=== PATIENT | female | born 1995 | race Caucasian/White ===

== ENCOUNTER 2016-06-02 16:40 | Emergency (ER) | payer OTHER ==
--- NOTE | 2016-06-02 18:40 | ED ORDER SUMMARY ---
..... Patient: MELY VILLANUEVA D OrderSheet [facility] VisitID: [id number] [place] [address] 20y, F Registration Date/Time: 06/02/2016 ORDER SHEET Weight: 74.8 kg (stated) Allergies: Sulfa Antibiotics GENERAL ORDERS: EKG - ER Stat (16:54 06/02/2016 MWinterer R.N. per protocol) (16:57 MWinterer R.N.) Cardiac Panel Stat (16:58 06/02/2016 MWinterer R.N. per protocol) (Ack 17:11 LNations ER Tech1) (17:39 MWinterer R.N.) UA-Culture if indicated Urgent (17:05 06/02/2016 EKoroleva P.A.-C) (Ack 17:11 LNations ER Tech1) (17:37 KHoerner) POC - Urine hCG (17:05 06/02/2016 EKoroleva P.A.-C) (Ack 17:11 LNations ER Tech1) (17:37 KHoerner) (Cancelled: Wrong Order17:39 KHoerner) Urine Urgent (17:39 06/02/2016 KHoerner per protocol) (17:39 MWinterer R.N.) Chest 2V Urgent (18:11 06/02/2016 EKoroleva P.A.-C) (Ack 18:24 LNations ER Tech1) (18:27 MWinterer R.N.) MEDICATION ORDERS: IV FLUIDS: IV Saline Lock (17:06 06/02/2016 EKoroleva P.A.-C) (17:08 JBoardley R.N.) ORDER SHEET NOTES: [Electronically signed by Vilma Muro R.N. (19:06 06/02/2016)] [Electronically signed by Selena Weaver P.A.-C (19:24 06/02/2016)] [Electronically locked/signed by Vilma Muro R.N. (19:06 06/02/2016)]
--- NOTE | 2016-06-02 18:40 | ED NURSING NOTES ---
Clinical Report - Nurses Located Within [facility] [address] [place] [address] 06/02/2016 16:41 Patient: MELY VILLANUEVA TRIAGE Acuity: LEVEL 3. Chief Complaint: CHEST PAIN. Alert. No acute distress. SEPSIS SCREEN: Sepsis Screen. Negative (no infection suspected/documented). --16:51 Vilma Muro R.N. 16:45 06/02/16. BP: 110/53. HR: 75. RR: 16. O2 saturation: 100% on room air. Temp: 97.7 F (oral). Pain level now: 4/10. --16:51 Vilma Muro R.N. Weight: 74.8 kg stated. Height/Length: 60 inches Per Patient. BMI: 32.2. --16:50 Vilma Muro R.N. Medications Sertraline HCl Oral 100 mg, 2x a day. --16:47 Vilma Muro R.N. Albuterol Sulfate Inhalation 2 puffs, PRN. --16:47 Vilma Muro R.N. Vitamins Oral. --16:48 Vilma Muro R.N. Medication/allergy information source: the patient. --16:51 Vilma Muro R.N. Allergies Sulfa Antibiotics. --16:48 Vilma Muro R.N. History Arrived by private vehicle. Historian: patient. Accompanied by spouse. Primary physician (Smita). This started last night. Describes the quality as pressure, aching. Relates location as in the central chest area and left chest area. Notes pain level as 4/10 on arrival. Provoking / relieving factors: worsened by supine position; relieved by upright position. The patient has had difficulty breathing and nausea. 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 PAST MEDICAL HX: Last normal menstrual period was 1 week ago. Sexual history - sexually active and engages in unprotected sex. SOCIAL HX: Current every day light tobacco smoker (cigarette)- less than 1/2 a pack per day. 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 No alcohol use. FALL RISK ASSESSMENT: Fall risk assessment completed. No fall risk identified. NUTRITIONAL RISK ASSESSMENT: The nutritional risk assessment revealed no deficiencies. FUNCTIONAL ASSESSMENT: Functional assessment: no impairments noted. LEARNING NEEDS ASSESSMENT: The learning needs assessment revealed no barriers. SKIN INTEGRITY ASSESSMENT: Skin integrity risk assessment completed. No skin integrity risk identified. --16:51 Vilma Muro R.N. PROBLEMS: Constipation. Otitis Externa. Nephrolithiasis. Renal Colic. . OB History. Lifestyle / Substance Problems. Asthma. Lung Disease. --16:48 Vilma Muro R.N. Assessment GENERAL / NEURO / PSYCH: Alert. Oriented X 4. Appears in no acute distress. Patient appears calm and cooperative. RESPIRATORY: Respirations not labored. CVS: Capillary refill less than 2 seconds. GI / : Abdomen soft and nontender. SKIN: Mucous membranes are pink. Skin is warm and dry. --16:51 Vilma Muro R.N. Interventions ID band on patient. To treatment room. Ambulatory. --16:51 Vilma Muro R.N. PHYSICAL ASSESSMENT 16:52 06/02/16. Ambulatory to room. Patient gowned. GENERAL / NEURO / PSYCH: Alert. Oriented X 4. Appears in no acute distress. HEENT: Mucous membranes are pink. RESPIRATORY: Respirations not labored. CVS: Cardiac rhythm: normal sinus rhythm. Capillary refill less than 2 seconds. GI / : Abdomen nontender. EXTREMITIES: No lower extremity edema. SKIN: Skin is warm and dry. Normal skin turgor. Skin is non-tender. --16:52 Vilma Muro R.N. NURSING PROGRESS NOTES 16:53 06/02/16. property assessment monitor and pulse oximeter placed on patient; personnel monitor- Lead I; monitor alarms on. Patient gowned. Head of bed elevated. Two patient identifiers checked. Call light placed in reach. Side rails up x 1. Bed placed in lowest position. Brakes of bed on. Patient ready for evaluation- chart flagged. --16:53 Vilma Muro R.N. 16:55 06/02/2016 Site #1 started via IV in the left wrist with an 20g angiocath, with aseptic technique and good blood return; one attempt. Blood drawn: rainbow set. Labeled in the presence of the patient and sent to the lab. Saline lock flushed with 10 mL saline. --16:55 Vilma Mruo R.N. EKG time: (165). EKG was ordered, performed by a tech and shown to the ED physician. --16:57 Vilma Muro R.N. <<STRICKEN ENTRY-- 16:58 06/02/2016 Site #2 started via IV in the left wrist with an 20g angiocath, with aseptic technique and good blood return; one attempt. Saline lock flushed with 10 mL saline (only able to draw green top blood specimen). --17:08 Obi Flores R.N. --END STRIKE>> Other. entered in error, already documented --17:10 Obi Flores R.N. 18:12 06/02/16. The patient reports no complaints and she is calm and resting quietly. Overall patient status- she states feels better (pt baby). --18:12 Vilma Muro R.N. 18:27 06/02/16. BP: 110/63. HR: 66. RR: 12. O2 saturation: 99% on room air. Temp: 97.7 F (oral). --18:28 Vilma Muro R.N. 18:45 06/02/2016 Site #1 removed upon discharge. Catheter intact. Manual pressure and bandage applied. --19:06 Vilma Muro R.N. DISPOSITION / DISCHARGE Departure time: 18:45 Jun 02 2016. Condition at departure: improved and stable. No learning barriers present. Discharge instructions provided and reviewed with the patient. Reviewed medication(s) side effects, precautions and dosing information. Prescription(s) given to the patient. Patient verbalized understanding. Written instructions provided in Vietnamese. The patient was discharged by the physician executive staff assistant. She was discharged home and accompanied by spouse. She left the Emergency Department ambulatory and via private vehicle. Spouse driving. --19:06 Vilma Muro R.N. 19:02 06/02/16. BP: 110/63. HR: 66. RR: 12. O2 saturation: 99%. Temp: 97.7 F. --19:06 Vilma Muro R.N. Locked/Released at 06/02/2016 19:06 by Vilma Muro R.N.
--- NOTE | 2016-06-02 18:40 | ED ORDER SUMMARY ---
..... Patient: MELY VILLANUEVA D OrderSheet [facility] VisitID: [id number] [place] [address] 20y, F Registration Date/Time: 06/02/2016 ORDER SHEET Weight: 74.8 kg (stated) Allergies: Sulfa Antibiotics GENERAL ORDERS: EKG - ER Stat (16:54 06/02/2016 MWinterer R.N. per protocol) (16:57 MWinterer R.N.) Cardiac Panel Stat (16:58 06/02/2016 MWinterer R.N. per protocol) (Ack 17:11 LNations ER Tech1) (17:39 MWinterer R.N.) UA-Culture if indicated Urgent (17:05 06/02/2016 EKoroleva P.A.-C) (Ack 17:11 LNations ER Tech1) (17:37 KHoerner) POC - Urine hCG (17:05 06/02/2016 EKoroleva P.A.-C) (Ack 17:11 LNations ER Tech1) (17:37 KHoerner) (Cancelled: Wrong Order17:39 KHoerner) Urine Urgent (17:39 06/02/2016 KHoerner per protocol) (17:39 MWinterer R.N.) Chest 2V Urgent (18:11 06/02/2016 EKoroleva P.A.-C) (Ack 18:24 LNations ER Tech1) (18:27 MWinterer R.N.) MEDICATION ORDERS: IV FLUIDS: IV Saline Lock (17:06 06/02/2016 EKoroleva P.A.-C) (17:08 JBoardley R.N.) ORDER SHEET NOTES: [Electronically signed by Vilma Muro R.N. (19:06 06/02/2016)] [Electronically signed by Selena Weaver P.A.-C (19:24 06/02/2016)] [Electronically locked/signed by Vilma Muro R.N. (19:06 06/02/2016)]
--- NOTE | 2016-06-02 18:40 | ED CLINICAL REPORT ---
Clinical Report - Physicians/Mid Levels [facility] [address] [place] [address] 06/02/2016 16:41 [id number] Time Seen: 16:57 Jun 02 2016. Arrived- By private vehicle. Historian- patient. HISTORY OF PRESENT ILLNESS Chief Complaint: CHEST PAIN. This started just prior to arrival and is still present. It is described as located in the central chest and left chest area and left shoulder. (Patient reports also a chest pain since last night, pain improves with standing. Denies any recent drug use. Denies history of similar pain. Denies any recent illness or trauma. Denies any fevers. Patientis 7 months , denies breast-feeding. Denies history of DVT. Denies any family history of sudden or early [place].). REVIEW OF SYSTEMS No chills or cough. All systems otherwise negative, except as recorded above. SOCIAL HISTORY Smoker- current status unknown. History of drug use: methamphetamines. No alcohol use. ADDITIONAL NOTES The nursing notes have been reviewed. PHYSICAL EXAM Vital Signs: 06/02/2016 16:45 BP: 110/53. HR: 75. RR: 16. O2 saturation: 100%. Temp: 97.7 F. Pain level now: 4/10. Appearance: Alert. Eyes: Eyes normal inspection. ENT: Nose normal. Pharynx normal. Neck: Normal inspection. Neck supple. CVS: Normal heart rate and rhythm. Heart sounds normal. Rhythm normal. No cardiac murmur. Respiratory: No respiratory distress. Chest pain reproducible with palpation of the anterior and lateral chest wall (left chest wall). Breath sounds normal. Chest nontender. No retractions or accessory muscle use. Abdomen: Soft and nontender. Bowel sounds normal. No abdominal tenderness or rebound tenderness. Back: Normal external inspection. Skin: Skin warm. Normal skin color. LABS, X-RAYS, AND EKG EKG: EKG time: (7889). No acute process. No acute ischemia. Normal EKG. Rate: 80. Normal P waves. Normal KEYONA. Normal QRS complex. Normal axis. Normal ST and T waves. The study has been interpreted contemporaneously. The EKG appears to be a good tracing. Chest X-ray: No acute disease. Normal lung markings present. Normal heart size. Mediastinum normal. Great vessels normal. No infiltrate. No fracture. No bony lesion present. Interpretation time: 1830. Laboratory Tests: UA-Culture if indicated: (JENNIE: 06/02/2016 17:35) ( [facility] 06/02/2016 17:52) Final results Test Result Flag Units (Reference) URINE COLOR YELLOW URINE APPEARANCE CLEAR URINE GLUCOSE NEGATIVE (NEGATIVE) URINE BILIRUBIN NEGATIVE (NEGATIVE) URINE KETONE NEGATIVE (NEGATIVE) URINE SPECIFIC GRAVITY >= 1.030 (1.010-1.030) URINE PH 6.0 (5.0-8.0) URINE PROTEIN NEGATIVE (NEGATIVE) URINE UROBILINOGEN 0.2 EU/dL (0.2-1.0) URINE NITRITE NEGATIVE (NEGATIVE) URINE BLOOD NEGATIVE (NEGATIVE) URINE LEUK ESTERASE NEGATIVE (NEGATIVE) URINE RBC NONE SEEN rbc/hpf (0-1) URINE WBC 0-1 wbc/hpf (0-1) URINE EPITHELIAL CELLS 0-1 EPI/hpf (0-5) URINE BACTERIA NONE SEEN (NONE SEEN) URINE COMMENT CULT NOT INDICATED 1+ MUCOUSURINE CULTURES ARE SET-UP BASED ON THE FOLLOWING CRITERIA:POSITIVE NITRITEPOSITIVE LEUKOCYTE ESTERASEGREATER THAN 10 WHITE BLOOD CELLSMODERATE (2+) OR GREATER BACTERIA Urine: (JENNIE: 06/02/2016 17:35) ( [facility] 06/02/2016 17:47) Final results Test Result Flag Units (Reference) URINE NEGATIVE CBC w Diff: (JENNIE: 06/02/2016 17:15) ( [facility] 06/02/2016 17:23) Final results Test Result Flag Units (Reference) WHITE BLOOD COUNT 6.4 K/uL (4.5-11.5) RED BLOOD COUNT 4.33 M/uL (4.00-5.20) HEMOGLOBIN 12.8 gm/dL (12.0-16.0) HEMATOCRIT 37.4 % (36.0-46.0) MEAN CELL VOLUME 86 fL (80-100) MEAN CORPUSCULAR HGB 30 pg (26-34) MEAN CORPUSCULAR HGB CONC 34 g/dL (31-37) RED CELL DISTRIBUTION WIDTH 13.7 % (11.6-14.8) PLATELET COUNT 260 K/uL (150-400) NEUTROPHIL % 56.4 % (50-75) LYMPH % 33.0 % (25-40) MONO % 7.2 % (3-14) EOSINOPHIL % 3.1 % (0-4) BASOPHIL % 0.3 % (0-2) CHEM 13 PANEL: (JENNIE: 06/02/2016 16:49) ( MsgRcvd 06/02/2016 17:33) Final results Test Result Flag Units (Reference) GLUCOSE 108 mg/dL (70-110) BUN 13 mg/dL (7-18) CREATININE 0.9 mg/dL (0.6-1.3) Estimated GFR >60 mL/min Estimated GFR- >60 mL/min Note: Persistent reduction over 3 months in eGFR<60 mL/min/1.73 m2 defines CKD. Patients with eGFR values>=60 mL/min/1.73 m2 may also have CKD if evidence ofpersistent proteinuria. Additional information may be foundat www.kidney.org. SODIUM 140 mmol/L (136-145) POTASSIUM 4.0 mmol/L (3.5-5.1) CHLORIDE 105 mmol/L (98-107) CARBON DIOXIDE 21 mmol/L (21-32) CALCIUM 9.1 mg/dL (8.5-10.1) TOTAL PROTEIN 7.4 g/dL (6.4-8.2) ALBUMIN 3.6 g/dL (3.3-5.0) BILIRUBIN, TOTAL 0.2 mg/dL (0.0-1.0) ALKALINE PHOSPHATASE 75 U/L (46-116) AST (SGOT) 19 U/L (15-37) ALT (SGPT) 21 U/L (12-78) MAGNESIUM 1.6 L mg/dL (1.8-2.4) CPK 69 U/L (24-260) TROPONIN I <0.05 ng/mL (0.00-1.5) TROPONIN REFERENCE RANGE:<0.1 NEGATIVE0.1-1.5 INDETERMINANT>1.5 POSITIVE . PROGRESS AND PROCEDURES Course of Care: Patient is perk roll negative. Patient very stable. Patient to follow up outpatient. Patient with reproducible pain on exam. No fevers. No history of IV drug abuse. Suspicion for PE, ACS is low at this time, suspicion for pericarditis endocarditis as low as well, this patient discharged to home care. Patient is stable. Patient/family counseled. Disposition: Discharged. CLINICAL IMPRESSION Atypical chest pain INSTRUCTIONS Avoid stimulants (such as cigarettes, coffee, cold medicines, sinus medicines, street drugs). Prescription Medications: Ibuprofen 800 mg tablets: take 1 tablet orally every 8 hours for 5 days, as needed for pain. Dispense fifteen (15). No refill. Follow-up: Follow up with your doctor in three days. (Electronically signed by Selena Weaver P.A.-C 06/02/2016 19:24)
--- NOTE | 2016-06-02 18:40 | ED CLINICAL REPORT ---
Clinical Report - Physicians/Mid Levels [facility] [address] [place] [address] 06/02/2016 16:41 [id number] Time Seen: 16:57 Jun 02 2016. Arrived- By private vehicle. Historian- patient. HISTORY OF PRESENT ILLNESS Chief Complaint: CHEST PAIN. This started just prior to arrival and is still present. It is described as located in the central chest and left chest area and left shoulder. (Patient reports also a chest pain since last night, pain improves with standing. Denies any recent drug use. Denies history of similar pain. Denies any recent illness or trauma. Denies any fevers. Patientis 7 months , denies breast-feeding. Denies history of DVT. Denies any family history of sudden or early [place].). REVIEW OF SYSTEMS No chills or cough. All systems otherwise negative, except as recorded above. SOCIAL HISTORY Smoker- current status unknown. History of drug use: methamphetamines. No alcohol use. ADDITIONAL NOTES The nursing notes have been reviewed. PHYSICAL EXAM Vital Signs: 06/02/2016 16:45 BP: 110/53. HR: 75. RR: 16. O2 saturation: 100%. Temp: 97.7 F. Pain level now: 4/10. Appearance: Alert. Eyes: Eyes normal inspection. ENT: Nose normal. Pharynx normal. Neck: Normal inspection. Neck supple. CVS: Normal heart rate and rhythm. Heart sounds normal. Rhythm normal. No cardiac murmur. Respiratory: No respiratory distress. Chest pain reproducible with palpation of the anterior and lateral chest wall (left chest wall). Breath sounds normal. Chest nontender. No retractions or accessory muscle use. Abdomen: Soft and nontender. Bowel sounds normal. No abdominal tenderness or rebound tenderness. Back: Normal external inspection. Skin: Skin warm. Normal skin color. LABS, X-RAYS, AND EKG EKG: EKG time: (3009). No acute process. No acute ischemia. Normal EKG. Rate: 80. Normal P waves. Normal KEYONA. Normal QRS complex. Normal axis. Normal ST and T waves. The study has been interpreted contemporaneously. The EKG appears to be a good tracing. Chest X-ray: No acute disease. Normal lung markings present. Normal heart size. Mediastinum normal. Great vessels normal. No infiltrate. No fracture. No bony lesion present. Interpretation time: 1830. Laboratory Tests: UA-Culture if indicated: (JENNIE: 06/02/2016 17:35) ( [facility] 06/02/2016 17:52) Final results Test Result Flag Units (Reference) URINE COLOR YELLOW URINE APPEARANCE CLEAR URINE GLUCOSE NEGATIVE (NEGATIVE) URINE BILIRUBIN NEGATIVE (NEGATIVE) URINE KETONE NEGATIVE (NEGATIVE) URINE SPECIFIC GRAVITY >= 1.030 (1.010-1.030) URINE PH 6.0 (5.0-8.0) URINE PROTEIN NEGATIVE (NEGATIVE) URINE UROBILINOGEN 0.2 EU/dL (0.2-1.0) URINE NITRITE NEGATIVE (NEGATIVE) URINE BLOOD NEGATIVE (NEGATIVE) URINE LEUK ESTERASE NEGATIVE (NEGATIVE) URINE RBC NONE SEEN rbc/hpf (0-1) URINE WBC 0-1 wbc/hpf (0-1) URINE EPITHELIAL CELLS 0-1 EPI/hpf (0-5) URINE BACTERIA NONE SEEN (NONE SEEN) URINE COMMENT CULT NOT INDICATED 1+ MUCOUSURINE CULTURES ARE SET-UP BASED ON THE FOLLOWING CRITERIA:POSITIVE NITRITEPOSITIVE LEUKOCYTE ESTERASEGREATER THAN 10 WHITE BLOOD CELLSMODERATE (2+) OR GREATER BACTERIA Urine: (JENNIE: 06/02/2016 17:35) ( [facility] 06/02/2016 17:47) Final results Test Result Flag Units (Reference) URINE NEGATIVE CBC w Diff: (JENNIE: 06/02/2016 17:15) ( [facility] 06/02/2016 17:23) Final results Test Result Flag Units (Reference) WHITE BLOOD COUNT 6.4 K/uL (4.5-11.5) RED BLOOD COUNT 4.33 M/uL (4.00-5.20) HEMOGLOBIN 12.8 gm/dL (12.0-16.0) HEMATOCRIT 37.4 % (36.0-46.0) MEAN CELL VOLUME 86 fL (80-100) MEAN CORPUSCULAR HGB 30 pg (26-34) MEAN CORPUSCULAR HGB CONC 34 g/dL (31-37) RED CELL DISTRIBUTION WIDTH 13.7 % (11.6-14.8) PLATELET COUNT 260 K/uL (150-400) NEUTROPHIL % 56.4 % (50-75) LYMPH % 33.0 % (25-40) MONO % 7.2 % (3-14) EOSINOPHIL % 3.1 % (0-4) BASOPHIL % 0.3 % (0-2) CHEM 13 PANEL: (JENNIE: 06/02/2016 16:49) ( MsgRcvd 06/02/2016 17:33) Final results Test Result Flag Units (Reference) GLUCOSE 108 mg/dL (70-110) BUN 13 mg/dL (7-18) CREATININE 0.9 mg/dL (0.6-1.3) Estimated GFR >60 mL/min Estimated GFR- >60 mL/min Note: Persistent reduction over 3 months in eGFR<60 mL/min/1.73 m2 defines CKD. Patients with eGFR values>=60 mL/min/1.73 m2 may also have CKD if evidence ofpersistent proteinuria. Additional information may be foundat www.kidney.org. SODIUM 140 mmol/L (136-145) POTASSIUM 4.0 mmol/L (3.5-5.1) CHLORIDE 105 mmol/L (98-107) CARBON DIOXIDE 21 mmol/L (21-32) CALCIUM 9.1 mg/dL (8.5-10.1) TOTAL PROTEIN 7.4 g/dL (6.4-8.2) ALBUMIN 3.6 g/dL (3.3-5.0) BILIRUBIN, TOTAL 0.2 mg/dL (0.0-1.0) ALKALINE PHOSPHATASE 75 U/L (46-116) AST (SGOT) 19 U/L (15-37) ALT (SGPT) 21 U/L (12-78) MAGNESIUM 1.6 L mg/dL (1.8-2.4) CPK 69 U/L (24-260) TROPONIN I <0.05 ng/mL (0.00-1.5) TROPONIN REFERENCE RANGE:<0.1 NEGATIVE0.1-1.5 INDETERMINANT>1.5 POSITIVE . PROGRESS AND PROCEDURES Course of Care: Patient is perk roll negative. Patient very stable. Patient to follow up outpatient. Patient with reproducible pain on exam. No fevers. No history of IV drug abuse. Suspicion for PE, ACS is low at this time, suspicion for pericarditis endocarditis as low as well, this patient discharged to home care. Patient is stable. Patient/family counseled. Disposition: Discharged. CLINICAL IMPRESSION Atypical chest pain INSTRUCTIONS Avoid stimulants (such as cigarettes, coffee, cold medicines, sinus medicines, street drugs). Prescription Medications: Ibuprofen 800 mg tablets: take 1 tablet orally every 8 hours for 5 days, as needed for pain. Dispense fifteen (15). No refill. Follow-up: Follow up with your doctor in three days. (Electronically signed by Selena Weaver P.A.-C 06/02/2016 19:24)
--- NOTE | 2016-06-02 18:40 | ED NURSING NOTES ---
Clinical Report - Nurses Formerly [facility] [address] [place] [address] 06/02/2016 16:41 Patient: MELY VILLANUEVA TRIAGE Acuity: LEVEL 3. Chief Complaint: CHEST PAIN. Alert. No acute distress. SEPSIS SCREEN: Sepsis Screen. Negative (no infection suspected/documented). --16:51 Vilma Muro R.N. 16:45 06/02/16. BP: 110/53. HR: 75. RR: 16. O2 saturation: 100% on room air. Temp: 97.7 F (oral). Pain level now: 4/10. --16:51 Vilma Muro R.N. Weight: 74.8 kg stated. Height/Length: 60 inches Per Patient. BMI: 32.2. --16:50 Vilma Muro R.N. Medications Sertraline HCl Oral 100 mg, 2x a day. --16:47 Vilma Muro R.N. Albuterol Sulfate Inhalation 2 puffs, PRN. --16:47 Vilma Muro R.N. Vitamins Oral. --16:48 Vilma Muro R.N. Medication/allergy information source: the patient. --16:51 Vilma Muro R.N. Allergies Sulfa Antibiotics. --16:48 Vilma Muro R.N. History Arrived by private vehicle. Historian: patient. Accompanied by spouse. Primary physician (Smita). This started last night. Describes the quality as pressure, aching. Relates location as in the central chest area and left chest area. Notes pain level as 4/10 on arrival. Provoking / relieving factors: worsened by supine position; relieved by upright position. The patient has had difficulty breathing and nausea. Treatment PATENT AGENT: Took ibuprofen. (pepto). PAST MEDICAL HX: Last normal menstrual period was 1 week ago. Sexual history - sexually active and engages in unprotected sex. SOCIAL HX: Current every day light tobacco smoker (cigarette)- less than 1/2 a pack per day. 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 No alcohol use. FALL RISK ASSESSMENT: Fall risk assessment completed. No fall risk identified. NUTRITIONAL RISK ASSESSMENT: The nutritional risk assessment revealed no deficiencies. FUNCTIONAL ASSESSMENT: Functional assessment: no impairments noted. LEARNING NEEDS ASSESSMENT: The learning needs assessment revealed no barriers. SKIN INTEGRITY ASSESSMENT: Skin integrity risk assessment completed. No skin integrity risk identified. --16:51 Vilma Muro R.N. PROBLEMS: Constipation. Otitis Externa. Nephrolithiasis. Renal Colic. . OB History. Lifestyle / Substance Problems. Asthma. Lung Disease. --16:48 Vilma Muro R.N. Assessment GENERAL / NEURO / PSYCH: Alert. Oriented X 4. Appears in no acute distress. Patient appears calm and cooperative. RESPIRATORY: Respirations not labored. CVS: Capillary refill less than 2 seconds. GI / : Abdomen soft and nontender. SKIN: Mucous membranes are pink. Skin is warm and dry. --16:51 Vilma Muro R.N. Interventions ID band on patient. To treatment room. Ambulatory. --16:51 Vilma Muro R.N. PHYSICAL ASSESSMENT 16:52 06/02/16. Ambulatory to room. Patient gowned. GENERAL / NEURO / PSYCH: Alert. Oriented X 4. Appears in no acute distress. HEENT: Mucous membranes are pink. RESPIRATORY: Respirations not labored. CVS: Cardiac rhythm: normal sinus rhythm. Capillary refill less than 2 seconds. GI / : Abdomen nontender. EXTREMITIES: No lower extremity edema. SKIN: Skin is warm and dry. Normal skin turgor. Skin is non-tender. --16:52 Vilma Muro R.N. NURSING PROGRESS NOTES 16:53 06/02/16. scagliola mechanic and pulse oximeter placed on patient; helmet hat puncher- Lead I; monitor alarms on. Patient gowned. Head of bed elevated. Two patient identifiers checked. Call light placed in reach. Side rails up x 1. Bed placed in lowest position. Brakes of bed on. Patient ready for evaluation- chart flagged. --16:53 Vilma Muro R.N. 16:55 06/02/2016 Site #1 started via IV in the left wrist with an 20g angiocath, with aseptic technique and good blood return; one attempt. Blood drawn: rainbow set. Labeled in the presence of the patient and sent to the lab. Saline lock flushed with 10 mL saline. --16:55 Vilma Muro R.N. EKG time: (165). EKG was ordered, performed by a tech and shown to the ED physician. --16:57 Vilma Muro R.N. <<STRICKEN ENTRY-- 16:58 06/02/2016 Site #2 started via IV in the left wrist with an 20g angiocath, with aseptic technique and good blood return; one attempt. Saline lock flushed with 10 mL saline (only able to draw green top blood specimen). --17:08 Obi Flores R.N. --END STRIKE>> Other. entered in error, already documented --17:10 Obi Flores R.N. 18:12 06/02/16. The patient reports no complaints and she is calm and resting quietly. Overall patient status- she states feels better (pt baby). --18:12 Vilma Muro R.N. 18:27 06/02/16. BP: 110/63. HR: 66. RR: 12. O2 saturation: 99% on room air. Temp: 97.7 F (oral). --18:28 Vilma Muro R.N. 18:45 06/02/2016 Site #1 removed upon discharge. Catheter intact. Manual pressure and bandage applied. --19:06 Vilma Muro R.N. DISPOSITION / DISCHARGE Departure time: 18:45 Jun 02 2016. Condition at departure: improved and stable. No learning barriers present. Discharge instructions provided and reviewed with the patient. Reviewed medication(s) side effects, precautions and dosing information. Prescription(s) given to the patient. Patient verbalized understanding. Written instructions provided in [place]. The patient was discharged by the physician financial sales assistant. She was discharged home and accompanied by spouse. She left the Emergency Department ambulatory and via private vehicle. Spouse driving. --19:06 Vilma Muro R.N. 19:02 06/02/16. BP: 110/63. HR: 66. RR: 12. O2 saturation: 99%. Temp: 97.7 F. --19:06 Vilma Muro R.N. Locked/Released at 06/02/2016 19:06 by Vilma Muro R.N.
--- NOTE | 2016-06-02 19:24 | ED MAR SUMMARY ---
..... Medication Administration Record [facility] [address] [place], [place] [id number] Patient: MELY VILLANUEVA Visit ID: [id number] 20y, F Weight: 74.8 kg Height/Length: 60 in BMI: 32.2 ALLERGIES: Sulfa Antibiotics
--- NOTE | 2016-06-02 19:24 | ED MED RECONCILIATION SUMMARY ---
Patient: MELY VILLANUEVA Medication Reconciliation Report [facility] VisitID: [id number] [place] [address] 20y, F Registration Date/Time: 06/02/2016 Weight: 74.8 kg Height/Length: 60 in. BMI: 32.2 ALLERGIES: Sulfa Antibiotics The patient's Home Medications are listed below: THE FOLLOWING MEDICATIONS NEED TO BE RECONCILED: Albuterol Sulfate Inhalation 2 puffs, PRN Vitamins Oral Sertraline HCl Oral 100 mg, 2x a day The source(s) of the original Home Medication information: patient The following Medications were given to the patient in the Emergency Department: None. The following Medications were prescribed to the patient: Ibuprofen 800 mg tablets: take 1 tablet orally every 8 hours for 5 days, as needed for pain. Dispense fifteen (15). No refill. -- Selena Weaver, AmeeANatalieC
--- NOTE | 2016-06-02 19:24 | ED MAR SUMMARY ---
..... Medication Administration Record [facility] [address] [place], [place] [id number] Patient: MELY VILLANUEVA Visit ID: [id number] 20y, F Weight: 74.8 kg Height/Length: 60 in BMI: 32.2 ALLERGIES: Sulfa Antibiotics
--- NOTE | 2016-06-02 19:24 | ED MED RECONCILIATION SUMMARY ---
Patient: MELY VILLANUEVA Medication Reconciliation Report [facility] VisitID: [id number] [place] [address] 20y, F Registration Date/Time: 06/02/2016 Weight: 74.8 kg Height/Length: 60 in. BMI: 32.2 ALLERGIES: Sulfa Antibiotics The patient's Home Medications are listed below: THE FOLLOWING MEDICATIONS NEED TO BE RECONCILED: Albuterol Sulfate Inhalation 2 puffs, PRN Vitamins Oral Sertraline HCl Oral 100 mg, 2x a day The source(s) of the original Home Medication information: patient The following Medications were given to the patient in the Emergency Department: None. The following Medications were prescribed to the patient: Ibuprofen 800 mg tablets: take 1 tablet orally every 8 hours for 5 days, as needed for pain. Dispense fifteen (15). No refill. -- Selena Weaver, AmeeANatalieC
--- NOTE | 2016-06-02 19:24 | ED DISCHARGE INSTRUCTIONS ---
Patient: MELY VILLANUEVA General Instructions [facility] VisitID: [id number] [place] [address] 20y, F Registration Date/Time: 06/02/2016 Atypical chest pain INSTRUCTIONS Avoid stimulants (such as cigarettes, coffee, cold medicines, sinus medicines, street drugs). Prescription Medications: Ibuprofen 800 mg tablets: take 1 tablet orally every 8 hours for 5 days, as needed for pain. Dispense fifteen (15). No refill. Follow-up: Follow up with your doctor in three days. ADDITIONAL INFORMATION Chest Pain, Noncardiac Based on your visit today, the exact cause of your chest pain is not certain. Your condition does not seem serious and your pain does not appear to be coming from your heart. However, sometimes the signs of a serious problem take more time to appear. Therefore, please watch for the warning signs listed below. Home Care: Rest today and avoid strenuous activity. Take any prescribed medicine as directed. Follow Up with your doctor or this facility as instructed or if you do not start to feel better within 24 hours. Get Prompt Medical Attention if any of the following occur: A change in the type of pain: if it feels different, becomes more severe, lasts longer, or begins to spread into your shoulder, arm, neck, jaw or back Shortness of breath or increased pain with breathing Cough with dark colored sputum (phlegm) or blood Weakness, dizziness, or fainting Fever of 100.4F (38C) or higher, or as directed by your healthcare provider Swelling, pain or redness in one leg Chest Pain, Uncertain Cause Chest pain can happen for a number of reasons. Sometimes the cause can not be determined. If yourcondition does not seem serious, and your pain does not appear to be coming from your heart, your doctor may recommend watching it closely. Sometimes the signs of a serious problem take more time to appear. Therefore, watch for the warning signs listed below. Home care After your visit, follow these recommendations: Rest today and avoid strenuous activity. Take any prescribed medicine as directed. Follow-up care Follow up with your doctor or this facility as instructed or if you do not start to feel better within 24 hours. Call 911 Get immediate medical attention if any of the following occur: A change in the type of pain: if it feels different, becomes more severe, lasts longer, or begins to spread into your shoulder, arm, neck, jaw or back Shortness of breath or increased pain with breathing Weakness, dizziness, or fainting Rapid heart beat Get prompt medical attention Call your doctor right away if any of the following occur: Cough with dark colored sputum (phlegm) or blood Fever of 100.4F(38C) or higher, or as directed by your health care provider Swelling, pain or redness in one leg You have been given the following additional information: Chest Pain, Noncardiac Chest Pain, Uncertain Cause (Electronically signed by Selena Weaver P.A.-C 06/02/2016 19:24)
--- NOTE | 2016-06-02 19:52 | DIAGNOSTIC IMAGING REPORT ---
PROCEDURE: XR CHEST 2 VIEW INDICATION: CHEST PAIN TECHNIQUE: PA and lateral views. COMPARISON: None. FINDINGS: Allowing for overlying wires and electrodes, lungs are clear. Heart and mediastinum are normal. Thorax is normal. IMPRESSION: 1. Negative chest.
== END 2016-06-02 18:45 | disposition home or self-care (01) ==
LOC: ED SRH 16:40
DX: R07.89 Other chest pain (principal); Z88.2 Allergy status to sulfonamides
CPT/HCPCS: 90004; 90100; 90616; 92610; 92720; 93070; 95059